=== PATIENT | male | born 1990 | race African-American/Black ===

== ENCOUNTER 2022-08-29 11:43 | Emergency (ER) | payer OTHER ==
[~2022-08-29] VITALS: Ht 180.3 cm; Wt 89.5 kg
[2022-08-29 11:50] VITALS: TEMP 97.7
[2022-08-29] MEDS ORDERED: BIKTARVY 30-121 EACH PO (11:58)
[2022-08-29] MEDS ORDERED: KEPPRA 500MG500 MG PO (11:58)
[2022-08-29] MEDS ORDERED: ZYPREXA15 MG PO (11:58)
[2022-08-29 12:21] LABS: HEMOGLOBIN 14.5 g/dl (13.5-18.0); MEAN CELL VOLUME 74 fl (80.0-100.0); MEAN CORPUSCULAR HEMOGLOBIN 24 pg (27-31); MEAN CORPUSCULAR HGB CONC 33 g/dl (33.0-37.0); MEAN PLATELET VOLUME 10.6 fl (7.4-10.4); PLATELET COUNT 219 K/mm3 (130-400); RED BLOOD COUNT 5.97 M/mm3 (4.20-5.60); REDCELL DISTRIBUTION WIDTH-CV 13.4 % (11.5-14.5)
[2022-08-29 12:25] LABS: ALBUMIN 4.5 gm/dL (3.5-5.0); ANION GAP 11 mmol/L (7-16); BLOOD UREA NITROGEN 10 mg/dL (9-21); CALCIUM 9.8 mg/dL (8.4-10.2); CARBON DIOXIDE 25 mmol/L (22-29); CHLORIDE 98 mmol/L (98-107); CREATININE, serum 1.52 mg/dL (0.72-1.25); PHOSPHOROUS 3.7 mg/dL (2.3-4.7); POTASSIUM 4.4 mmol/L (3.5-4.5); SODIUM 134 mmol/L (136-145)
[2022-08-29 12:27] LABS: ACETONE,SERUM NEGATIVE
[2022-08-29 12:28] LABS: GLUCOSE 507 mg/dL (70-99)
[2022-08-29 13:27] LABS: BASOPHIL 8 % (0-2); EOSINOPHIL 9 % (0-4); LYMPHOCYTE 52 % (20.0-51.0); NEUTROPHILS 24 % (42.0-75.2)
[2022-08-29 13:28] LABS: PLATELET ESTIMATE NORMAL (NORMAL)
[2022-08-29 13:29] LABS: HYPOCHROMIA 1+; MICROCYTOSIS 1+
[2022-08-29] MEDS ORDERED: GLUCOTROL 5M5 MG/TAB PO (14:49)
[2022-08-29 15:50] VITALS: BP 143/81; PULSE 96
== END 2022-08-29 15:55 ==
LOC: COL.ER 11:43
PROVIDERS: Emergency Medicine
DX: E11.65 Type 2 diabetes mellitus with hyperglycemia (principal); E86.0 Dehydration; N28.9 Disorder of kidney and ureter, unspecified; Z88.8 Allergy status to other drugs, medicaments and biological substances; Z28.310 Unvaccinated for COVID-19
CPT/HCPCS: J7120